=== PATIENT | male | born 1980 | race Caucasian/White ===

== ENCOUNTER 2023-01-13 17:57 | Emergency (ER) | payer OTHER, SELFPAY ==
[2023-01-13] VITALS (22 sets, daily range): BP systolic 124–148; BP diastolic 88–101; PULSE 50–76; RESP 14–19; TEMP 36.5; O2SAT 98–100
--- NOTE | ~2023-01-13 | CT_ITS ---
EXAMINATION: CT brain wo con DATE: 01/13/2023 21:47 INDICATION: Vertigo TECHNIQUE: Computed tomography (CT) of the head was performed without intravenous contrast. Sagittal and coronal reconstructions were performed. The mA was adjusted according to patient size. Iterative reconstruction technique was employed. The dose-length product was 681.00 mGy-cm. COMPARISON: None FINDINGS: No acute intracranial hemorrhage, acute infarction or abnormal extra axial fluid collection. Ventricl es are normal and symmetric. No mass/mass effect. The orbits, paranasal sinuses and mastoid air cells are normal. IMPRESSION: 1. No acute intracranial process. Reviewed, dictated and finalized at location A.
--- NOTE | 2023-01-13 18:14 | ECG_ITS ---
Measurements Intervals [place] Rate: 59 P: 19 DC: 144 QRS: 6 QRSD: 93 T: 38 QT: 377 QTc: 374 Interpretive Statements SINUS BRADYCARDIA BORDERLINE ECG NO PREVIOUS ECG AVAILABLE FOR COMPARISON Electronically Signed On 01-13-2023 19:43:13 CDT by Reginaldo Verdugo D.O.
[2023-01-13 18:31] LABS: Basophils Percent Auto 0.1 % (0.2-1.2); Eosinophils Absolute Auto 0.1 K/mm3 (0-0.3); Eosinophils Percent Auto 0.8 % (0-4.4); Hematocrit 41.5 % (42.0-52.0); Hemoglobin 14.4 g/dL (14.0-18.0); Immature Granulocyte Absolute 0.02 K/mm3 (0.00-0.031); Immature Granulocyte Percent A 0.3 % (0-0.5); Lymphocytes Absolute Auto 2.12 K/mm3 (0.9-3.2); Lymphocytes Percent Auto 27.1 % (18.3-44.2); Mean Corpuscular HGB Conc 34.7 g/dl (32-36); Mean Corpuscular Hemoglobin 30.4 pg (26-34); Mean Corpuscular Volume 87.6 fl (80-100); Mean Platelet Volume 9.8 fl (7.4-10.4); Monocytes Absolute Auto 0.5 K/mm3 (0.1-0.6); Monocytes Percent Auto 6.1 % (2.6-8.5); Neutrophils Absolute Auto 5.1 K/mm3 (1.3-6.7); Neutrophils Percent Auto 65.6 % (45.5-73.1); Platelet Count Result 163 k/mm3 (150-375); Red Blood Count 4.74 M/mm3 (4.6-6.20); Red Cell Distribution Width 12.8 % (11.5-14.5); White Blood Count 7.8 K/mm3 (4.5-10.0)
[2023-01-13 18:44] LABS: Alanine Aminotransferase 29 U/L (6-50); Albumin Level 4.4 g/dL (3.5-5.1); Alkaline Phosphatase 51 U/L (38-126); Anion Gap 11 mmol/L (8-16); Aspartate Amino Transferase 33 U/L (17-59); Bilirubin,Total 0.9 mg/dL (0.2-1.3); Blood Urea Nitrogen 19 mg/dL (9-20); Calcium 9.1 mg/dL (8.4-10.2); Carbon Dioxide 26 mmol/L (22-30); Chloride 103 mmol/L (98-107); Estimated CRCL calculation 111 ml/min; Estimated Glomerular Filt Rate > 60; Glucose 101 mg/dL (65-110); Potassium 3.7 mmol/L (3.4-5.0); Sodium 140 mmol/L (137-145)
[2023-01-13] MEDS: MECLIZINE HCL 25 MG TABLET PO (20:36)
[2023-01-13] MEDS: SODIUM CHLORIDE 0.9% IV 2,000 ML 999 ML IV CONT (20:38)
[2023-01-13] MEDS: SCOPOLAMINE 1.5 MG PATCH TRANSDERM (20:40)
[2023-01-13] MEDS: ONDANSETRON INJ 4 MG/2 ML VIAL IV PUSH (20:40)
[2023-01-13] MEDS: KETOROLAC 15 MG/ML VIAL (*BKC) IV PUSH (20:40)
[2023-01-13] MEDS: ACETAMINOPHEN 500 MG TABLET 1000 MG PO (21:37)
--- NOTE | 2023-01-13 21:41 | PC.NURSE ---
pt taken to CT scan at this time.
[2023-01-13 22:20] LABS: Influenza A QL RT-PCR Negative (Negative); Influenza B QL RT-PCR Negative (Negative); RSV RNA, RT-PCR Negative (Negative); SARS-CoV-2 RNA PCR Negative (Negative)
--- NOTE | 2023-01-13 22:55 | ED.GENADULT ---
HPI - General Adult General Chief complaint: Dizziness Stated complaint: dizziness and nausea - post vasectomy Time Seen by Provider: 01/13/23 19:30 History of Present Illness HPI narrative: this is a 42-year-old male presenting to the ED with chief complaint of dizziness. Patient got a vasectomy yesterday. After the procedure he started to have vertigo symptoms. They are triggered with head movements. They are episodic. They are not associated with diplopia, dysphagia dysarthria or dystaxia. Patient has never had vertigo in the past. Patient denies URI symptoms, ear fullness or loss of hearing. Denies head trauma or neurologic deficits. Related Data Allergies Allergy/AdvReac Type Severity Reaction Status Date / Time No Known Allergies Allergy Verified 01/13/23 17:58 Exam Narrative: APPEARANCE: No apparent distress. Head: tympanic membranes normal EYES: EOMI, NOSE: Atraumatic NECK: Trachea midline RESPIRATORY: No increased rate of breathing CARDIOVASCULAR: RRR, ABDOMINAL: Non-distended MUSCULOSKELETAl: No obvious deformities NEURO: Alert. Cranial nerves 2-12 grossly intact. Sensation light touch, motor function cerebellar function intact for 4 extremities. Gait exam was normal. SKIN:: Warm, dry. Normal color PSYCHIATRIC: Normal affect Course Vital Signs Vital signs: Vital Signs Temperature 97.7 F 01/13/23 18:09 Pulse Rate 76 01/13/23 18:09 Respiratory Rate 18 01/13/23 18:09 Blood Pressure 131/90 01/13/23 18:09 Pulse Oximetry 100 01/13/23 18:09 Oxygen Delivery Room Air 01/13/23 18:09 Temperature 97.7 F 01/13/23 21:40 Pulse Rate 56 L 01/13/23 21:40 Respiratory Rate 17 01/13/23 21:40 Blood Pressure 126/88 01/13/23 21:40 Pulse Oximetry 100 01/13/23 21:40 Oxygen Delivery Room Air 01/13/23 18:09 Medical Decision Making [facility] Narrative Medical decision making narrative: -Course: 42-year-old male presenting with triggerable episodic vertigo. Occurred after he had a vasectomy although I believe that is unrelated. Neuro exam is normal. CT head negative. Patient improved with meclizine and scopolamine. Will be discharged with outpatient medications and return precautions. -DDX includes but is not limited to: BPPV, adverse effective to medication,vestibular neuritis, posterior stroke, dehydration, viral syndrome -Co-morbidities complicating care: recent vasectomy -Social determinants of health: patient works in the [employer] -Independent interpretation of studies: laboratory studies normal. Viral swabs negative. CT head negative. Independent EKG interpretation: Rhythm [sinus], Rate [59], [place] -[normal], [place] -[normal], QRS [narrow], QTC [normal], T waves -[negative for concerning inversions], ST Segments - [Negative for concerning elevations] Final interpretations: [Normal Sinus Rhythm] -Interventions: meclizine, scopolamine, 1 L normal saline, Toradol, Tylenol -Shared decision making / Disposition: discharged -RX meclizine, scopolamine Vital Signs Vital Signs: Vital Signs Temperature 97.7 F 01/13/23 18:09 Pulse Rate 76 01/13/23 18:09 Respiratory Rate 18 01/13/23 18:09 Blood Pressure 131/90 01/13/23 18:09 Pulse Oximetry 100 01/13/23 18:09 Oxygen Delivery Room Air 01/13/23 18:09 Temperature 97.7 F 01/13/23 21:40 Pulse Rate 56 L 01/13/23 21:40 Respiratory Rate 17 01/13/23 21:40 Blood Pressure 126/88 01/13/23 21:40 Pulse Oximetry 100 01/13/23 21:40 Oxygen Delivery Room Air 01/13/23 18:09 Lab Data 01/13/23 18:23 01/13/23 18:23 Labs: Lab Results 01/13/23 01/13/23 Range/Units 18:23 21:39 WBC 7.8 (4.5-10.0) K/mm3 RBC 4.74 (4.6-6.20) M/mm3 Hgb 14.4 (14.0-18.0) g/dL Hct 41.5 L (42.0-52.0) % MCV 87.6 (80-100) fl MCH 30.4 (26-34) pg MCHC 34.7 (32-36) g/dl RDW 12.8 (11.5-14.5) % Plt Count 163 (150-375) k/mm3 MPV 9.8 (7.4-10.4) fl
== END 2023-01-13 23:30 | disposition home or self-care (01) ==
PROVIDERS: Emergency Medicine; Emergency Provider Emergency Medicine
DX: R42 Dizziness and giddiness (principal); Z20.822 Contact with and (suspected) exposure to COVID-19
CPT/HCPCS: 36415; 70450; 80053; 85025; 87637; 93005; 96361; 96374; 96375; 99284; A9270; J1885; J2405; J7030